=== PATIENT | female | born 1975 | race Caucasian/White ===

== ENCOUNTER 2021-03-18 18:26 | Inpatient (IN) | payer OTHER ==
[~2021-03-18] VITALS: Ht 152.4 cm; Wt 86.6 kg
[2021-03-18 18:38] VITALS: BP 167/100
[2021-03-18] MEDS ORDERED: WELLBUTRIN SR150 MG PO (18:51)
[2021-03-18] MEDS ORDERED: LISINOPRIL-HCT1 EACH PO (18:52)
[2021-03-18] MEDS ORDERED: HYOSCYAMINE0.125 MG PO (18:52)
[2021-03-18] MEDS ORDERED: LEVO-T25 MCG PO (18:52)
[2021-03-18] MEDS ORDERED: OXYBUTYNIN 5 MG5 M2 PO (18:53)
[2021-03-18] MEDS ORDERED: FLOMAX0.4 MG PO (18:53)
[2021-03-18] MEDS ORDERED: LAXATIVE5 M1 PO (18:53)
[2021-03-18 19:02] LABS: URINE BILIRUBIN NEGATIVE (Negative); URINE BLOOD 3+ (Negative); URINE CLARITY CLEAR; URINE COLOR YELLOW; URINE GLUCOSE-RANDOM NEGATIVE (Negative); URINE KETONES NEGATIVE (Negative); URINE LEUKOCYTES-REFLEX TRACE (Negative); URINE NITRITE-REFLEX NEGATIVE (Negative); URINE PROTEIN 1+ (Negative); URINE UROBILINOGEN 0.2 E.U./dl (0.2-1.0)
[2021-03-18 19:08] LABS: BACTERIA-REFLEX 1-9 Few /HPF (None Seen); CASTS None Seen /LPF (None Seen); SQUAMOUS 4-10 Moderate /LPF (0-3); URINE RBC >20 Many /HPF (0-2); URINE WBC-REFLEX 0-5 Rare /HPF (0-5)
[2021-03-18 19:09] LABS: CRYSTALS None Seen /LPF (None Seen)
[2021-03-18 19:45] LABS: HEMATOCRIT 39.6 % (37.0-47.0); HEMOGLOBIN 13.5 gm/dL (12.0-15.0); MCH 31.9 pg (26.0-34.0); MCHC 34.1 g/dL (28.0-37.0); MCV 93.7 fL (80.0-100.0); MPV 11.2 fl. (7.2-11.1); NUCLEATED RBCS 0 /100WBC; PLATELET COUNT* 112 thou/uL (150-400); RBC 4.22 mil/uL (4.20-5.00); RDW-CV 13.8 % (10.5-14.5); WBC 14.7 thou/uL (4.0-11.0)
[2021-03-18 19:48] LABS: CALCIUM 8.7 mg/dL (8.5-10.1); CREATININE 1.5 mg/dL (0.6-1.3); POTASSIUM 3.8 mmol/L (3.5-5.1)
[2021-03-18 19:52] LABS: ALBUMIN 2.5 g/dL (3.4-5.0); TOTAL BILIRUBIN 0.7 mg/dL (<0.1-1.0); TOTAL PROTEIN 6.6 g/dL (6.4-8.2)
[2021-03-18 20:12] VITALS: BP 146/54
[2021-03-18 20:15] LABS: ABSOLUTE LYMPHOCYTES 1.5 thou/uL (0.8-5.3); ABSOLUTE MONOCYTES 0.6 thou/uL (0.0-1.2); ABSOLUTE NEUTROPHILS 12.6 thou/uL (1.6-8.1); PLATELET ESTIMATE DECREASED
[2021-03-18 20:16] LABS: LARGE PLATELETS RARE
[2021-03-18 20:58] LABS: AMP/METHAMP Negative (Negative); BARBITURATES Negative (Negative); BENZODIAZEPINES POSITIVE (Negative); COCAINE Negative (Negative); METHADONE Negative (Negative); OPIATES Negative (Negative); PCP Negative (Negative); THC Negative (Negative)
[2021-03-18 22:11] VITALS: BP 129/78
[2021-03-18 22:13] VITALS: BP 128/84
[2021-03-18 23:58] VITALS: BP 163/49
[2021-03-19 07:15] VITALS: BP 136/89
[2021-03-19 11:09] LABS: ABSOLUTE MONOCYTES 1.2 thou/uL (0.0-1.2); ABSOLUTE NEUTROPHILS 10.9 thou/uL (1.6-8.1); BASOPHILS 0.2 %; EOSINOPHILS 0.2 %; HEMATOCRIT 36.3 % (37.0-47.0); HEMOGLOBIN 12.3 gm/dL (12.0-15.0); LYMPHOCYTES 7.3 %; MCH 32.5 pg (26.0-34.0); MCV 95.5 fL (80.0-100.0); MONOCYTES 9.2 %; MPV 10.1 fl. (7.2-11.1); NUCLEATED RBCS 0 /100WBC; PLATELET COUNT* 98 thou/uL (150-400); POLYS 83.1 %; RDW-CV 14.4 % (10.5-14.5); WBC 13.1 thou/uL (4.0-11.0)
[2021-03-19 11:19] LABS: INR 1.1; PROTIME 11.2 Seconds (9.20-11.50)
[2021-03-19 11:22] LABS: ALBUMIN 2.2 g/dL (3.4-5.0); CALCIUM 8.2 mg/dL (8.5-10.1); CREATININE 1.3 mg/dL (0.6-1.3); MAGNESIUM 1.7 mg/dL (1.8-2.4); PHOSPHORUS* 3.4 mg/dL (2.5-4.9); POTASSIUM 3.6 mmol/L (3.5-5.1); TOTAL BILIRUBIN 0.9 mg/dL (<0.1-1.0); TOTAL PROTEIN 5.8 g/dL (6.4-8.2)
[2021-03-19 20:00] VITALS: BP 174/104
[2021-03-20 00:40] VITALS: BP 137/87
[2021-03-20 04:00] VITALS: BP 125/77
[2021-03-20 07:42] LABS: ABSOLUTE EOSINOPHILS 0.1 thou/uL (0.0-0.7); ABSOLUTE LYMPHOCYTES 1.6 thou/uL (0.8-5.3); ABSOLUTE MONOCYTES 0.7 thou/uL (0.0-1.2); ABSOLUTE NEUTROPHILS 6.5 thou/uL (1.6-8.1); BASOPHILS 0.3 %; EOSINOPHILS 0.6 %; HEMATOCRIT 36.7 % (37.0-47.0); HEMOGLOBIN 12.4 gm/dL (12.0-15.0); LYMPHOCYTES 18.2 %; MCH 32.6 pg (26.0-34.0); MCHC 33.9 g/dL (28.0-37.0); MCV 96.3 fL (80.0-100.0); MONOCYTES 7.6 %; MPV 9.6 fl. (7.2-11.1); NUCLEATED RBCS 0 /100WBC; PLATELET COUNT* 99 thou/uL (150-400); POLYS 73.3 %; RBC 3.81 mil/uL (4.20-5.00); RDW-CV 14.5 % (10.5-14.5); WBC 8.9 thou/uL (4.0-11.0)
[2021-03-20 07:48] LABS: INR 1.1; PROTIME 11.2 Seconds (9.20-11.50)
[2021-03-20 08:00] VITALS: BP 143/72
[2021-03-20 08:29] LABS: ALBUMIN 2.1 g/dL (3.4-5.0); CALCIUM 7.9 mg/dL (8.5-10.1); CREATININE 1.2 mg/dL (0.6-1.3); MAGNESIUM 1.8 mg/dL (1.8-2.4); PHOSPHORUS* 3.3 mg/dL (2.5-4.9); POTASSIUM 3.6 mmol/L (3.5-5.1); TOTAL BILIRUBIN 0.7 mg/dL (<0.1-1.0); TOTAL PROTEIN 5.8 g/dL (6.4-8.2)
[2021-03-20] MEDS ORDERED: CEFUROXIME500 MG PO (10:29)
[2021-03-20 12:00] VITALS: BP 143/72
== END 2021-03-20 12:50 | disposition home or self-care (01) | DRG 872 ==
LOC: M.ERS 18:26 → M.TBA-ER 20:36 → M.ORTHSURG 22:13 → M.2W 03-19 15:44
PROVIDERS: Internal Medicine; Nurse Practitioner Psychiatric/Mental Health; ADMIT Internal Medicine; ATTEND Internal Medicine
DX: A41.9 Sepsis, unspecified organism (principal); E87.1 Hypo-osmolality and hyponatremia; F10.139 Alcohol abuse with withdrawal, unspecified; N39.0 Urinary tract infection, site not specified; E03.9 Hypothyroidism, unspecified; I10 Essential (primary) hypertension; F32.9 Major depressive disorder, single episode, unspecified; N28.9 Disorder of kidney and ureter, unspecified; N20.0 Calculus of kidney; E86.0 Dehydration; Z20.822 Contact with and (suspected) exposure to COVID-19; Z79.899 Other long term (current) drug therapy; Z88.6 Allergy status to analgesic agent